=== PATIENT | female | born 1965 | race African-American/Black ===

== ENCOUNTER 2019-12-02 07:31 | Inpatient (IN) | payer OTHER ==
[~2019-12-02] VITALS: Ht 160 cm; Wt 45.4 kg
[2019-12-02] MEDS ORDERED: CLARINEX-D 121 EACH (07:41)
--- NOTE | 2019-12-02 07:41 | NUR ---
PACIENTE REFIERE HACE 3 TOLLIVER PRESNETANDO HEMORROIDES HOY CONTINUA CON LAS MISMAS CON DOLOR Y MANCHANDO AREA RECTAL
--- NOTE | 2019-12-02 09:03 | NUR ---
MS BURGER ORIENTA A PACIENTE SOBRE ORDENES MEDICAS, COLECTA MUESTRAS DE MANDA, CANALIZA VENA Y ADMINISTRA MEDICAMENTOS.
--- NOTE | 2019-12-02 15:41 | NUR ---
PTE ALERTA Y ORIENTADA X 3 ESFERAS,EN ALANA CON BARANDAS ELEVADAS,SIN FAMILIAR AL MOMENTO DE LA CARITO.AREA DE VENOPUNCION PATENTE Y PRASHANT DE EDEA CON FLUIDOS DE MANTENIMIENTO BAJANDO SIN DIFICULTAD.NO REFIERE DOLOR AL MOMENTO DE LA CARITO,PENDIENTE A EVALUACION DE DR TOUS.
[2019-12-05] MEDS ORDERED: OXYC1TAB9 PO (16:23)
[2019-12-05] MEDS ORDERED: GABAPENTIN300 MG PO (16:23)
== END 2019-12-05 17:36 | disposition home or self-care (01) | DRG 348 ==
LOC: ER 07:31 → SURG 17:50 → SURH 12-03 19:31 → SURG 12-03 20:23
PROVIDERS: ADMIT Colon & Rectal Surgery; ATTEND Colon & Rectal Surgery
PROC: 06BY0ZC Excision of Hemorrhoidal Plexus, Open Approach (ICD-10-PCS; principal; 2019-12-02)
PROC: 30233N1 Transfusion of Nonautologous Red Blood Cells into Peripheral Vein, Percutaneous Approach (ICD-10-PCS; 2019-12-04)
DX: K64.2 Third degree hemorrhoids (principal); D62 Acute posthemorrhagic anemia; K62.5 Hemorrhage of anus and rectum; Z20.828 Contact with and (suspected) exposure to other viral communicable diseases